=== PATIENT | male | born 1995 | race African-American/Black ===

== ENCOUNTER 2023-12-20 17:56 | Emergency (ER) | payer OTHER ==
[~2023-12-20] VITALS: Ht 185.4 cm; Wt 82.0 kg
[2023-12-20 18:18] VITALS: O2SAT 99
[2023-12-20 19:30] VITALS: BP 127/64; PULSE 69; RESP 17; TEMP 37.00296; O2SAT 100
[2023-12-20] MEDS: IBUPROFEN 600MG TABLET PO ONE (19:42)
[2023-12-20] MEDS: TETANUS, DIPHTHERIA, PERTUSSIS VAC/PF 0.5ML (>10YR OLD) IM ONE (19:42)
[2023-12-20] MEDS: HYDROCODONE/ACETAMINOPHEN 5/325MG TABLET PO ONE (19:58)
== END 2023-12-20 20:33 | disposition home or self-care (01) ==
LOC: ER 17:56 → EDBD 17:56 → ER 20:33
DX: S62.002A Unspecified fracture of navicular [scaphoid] bone of left wrist, initial encounter for closed fracture (principal); X58.XXXA Exposure to other specified factors, initial encounter; Y93.89 Activity, other specified; Y92.89 Other specified places as the place of occurrence of the external cause; Y99.8 Other external cause status
CPT/HCPCS: 73110; 90715; 29125; 90471; 99283; Z7610